=== PATIENT | female | born 1930 | race Caucasian/White ===

== ENCOUNTER 2017-04-23 12:09 | Emergency (ER) | payer MEDICARE, OTHER, MEDICAID ==
[2017-04-23 13:01] VITALS: BP 117/59
--- NOTE | 2017-04-23 13:36 | EDM.PDOC ---
ED HPI GENERAL MEDICAL PROBLEM - General Chief Complaint: General Stated Complaint: COUGH Time Seen by Provider: 04/23/17 13:15 Source of Information: Reports: Patient, Family History Limitations: Denies: Other (Confusion from dementia) - History of Present Illness INITIAL COMMENTS - FREE TEXT/NARRATIVE: 87-year-old female who went into the clinic because of a cough, she also fell and bumped the back of her head yesterday but they watched her closely and she developed no symptoms. She went into the clinic and they sent her over the emergency room. She is very stable, talkative, and other than a moderate cough has no other symptoms. No fevers or chills no nausea or vomiting Severity: Mild Associated Symptoms: Denies: Fever/Chills, Headaches, Malaise, Nausea/Vomiting, Shortness of Breath, Weakness - Related Data Allergies Allergy/AdvReac Type Severity Reaction Status Date / Time amoxicillin trihydrate Allergy Cannot Verified 04/23/17 13:05 [From Augmentin] Remember Dairy Products Allergy Cannot Verified 04/23/17 13:05 Remember nitrofurantoin Allergy Cannot Verified 04/23/17 13:05 [From Macrobid] Remember nitrofurantoin Allergy Cannot Verified 04/23/17 13:05 macrocrystalline Remember [From Macrobid] Penicillins Allergy Disorientat Verified 04/23/17 13:05 ion potassium clavulanate Allergy Cannot Verified 04/23/17 13:05 [From Augmentin] Remember sertraline Allergy Cannot Verified 04/23/17 13:05 Remember Sulfa (Sulfonamide Allergy Cannot Verified 04/23/17 13:05 Antibiotics) Remember Home Meds: Home Meds Cranberry 500 mg PO DAILY 06/01/14 [History] Digoxin [Lanoxin] 0.125 mg PO ASDIRECTED 06/01/14 [History] Digoxin [Lanoxin] 0.25 mg PO ASDIRECTED 06/01/14 [History] Docusate Sodium 100 mg PO DAILY PRN 06/01/14 [History] Multivitamin [Chewable Multi Vitamin] 1 each PO DAILY 06/01/14 [History] Omeprazole 20 mg PO DAILY 06/01/14 [History] Potassium Chloride [Klor-Con 10] 20 meq PO BID 06/01/14 [History] Tolterodine [Detrol] 2 mg PO BID 06/01/14 [History] Warfarin [Coumadin] 3 mg PO ASDIRECTED 06/01/14 [History] Calcium Carbonate [Calcium] 600 mg PO DAILY 09/10/16 [History] Cholecalciferol (Vitamin D3) [Vitamin D3] 2,000 units PO DAILY 09/10/16 [History ] Glycerin/Propylene Glycol [Artificial Tears Drops] 1 drop EYEBOTH Q4H 09/10/16 [ History] HCTZ/Triamterene [Maxzide 25-37.5 MG] 1 tab PO DAILY 09/10/16 [History] Latanoprost 1 drop EYELF DAILY 09/10/16 [History] Metoprolol Tartrate [Lopressor] 0.5 tab PO BID 09/10/16 [History] Warfarin [Coumadin] 2 mg PO ASDIRECTED 09/10/16 [History] atorvaSTATin [Lipitor] 20 mg PO DAILY 09/10/16 [History] prednisoLONE Acetate [Prednisolone Acetate] 1 drop EYELF DAILY 09/10/16 [History ] Acetaminophen [Tylenol] 650 mg PO Q4H PRN #100 tablet 09/11/16 [Rx] Cephalexin [Keflex] 250 mg PO BEDTIME 04/23/17 [History] Gabapentin [Neurontin] 100 mg PO BID 04/23/17 [History] Gabapentin [Neurontin] 300 mg PO BEDTIME 04/23/17 [History] Past Medical History HEENT History: Reports: Cataract, Glaucoma, Macular Degeneration Cardiovascular History: Reports: Heart Failure Gastrointestinal History: Reports: GERD Genitourinary History: Reports: Urinary Incontinence, UTI, 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: Musculoskeletal History: Reports: Fracture, Osteoporosis Neurological History: Reports: Alzheimers Disease, TIA Psychiatric History: Reports: Depression Endocrine/Metabolic History: Reports: Osteoporosis Hematologic History: Reports: Blood Transfusion(s) Oncologic (Cancer) History: Reports: Lymphoma - Infectious Disease History Infectious Disease History: Reports: Chicken Pox, Mumps, Shingles - Past Surgical History HEENT Surgical History: Reports: Cataract Surgery Oncologic Surgical History: Reports: Bone Marrow Transplant Social & Family History - Tobacco Use Smoking Status *Q: Never Smoker - Caffeine Use Caffeine Use: Reports: Coffee - Recreational Drug Use Recreational Drug Use: No ED ROS GENERAL - Review of Systems Review Of Systems: See Below Constitutional: Denies: Fever, Chills, Malaise HEENT: Denies: Vision Change Respiratory: Reports: Cough. Denies: Shortness of Breath, Wheezing Cardiovascular: Denies: Chest Pain GI/Abdominal: Denies: Abdominal Pain, Nausea, Vomiting Skin: Reports: Bruising (On the back of her scalp from a fall yesterday) Neurological: Reports: Confusion (Chronic and stable). Denies: Headache ED EXAM, GENERAL - Physical Exam Exam: See Below Exam Limited By: No Limitations General Appearance: Alert, No Apparent Distress Eye Exam: Bilateral Eye: Normal Inspection Neck: Normal Inspection, Supple, Non-Tender Respiratory/Chest: Rales (A few bibasilar rales, slightly worse on the left). No: Wheezing Cardiovascular: Regular Rate, Rhythm GI/Abdominal: Soft, Non-Tender Extremities: Normal Inspection. No: Pedal Edema Neurological: Alert. No: Oriented (Patient is not oriented to time) Psychiatric: Normal Affect, Normal Mood Skin Exam: Warm, Dry, Other (Small 3 cm ecchymotic bruise on the back of her scalp, no hematoma) Course - Vital Signs Last Recorded V/S: Last Vital Signs Temp 96.5 F 04/23/17 13:03 Pulse 75 04/23/17 13:03 Resp 17 04/23/17 13:03 BP 117/59 L 04/23/17 13:03 Pulse Ox 95 04/23/17 13:03 - Re-Assessments/Exams Free Text/Narrative Re-Assessment/Exam: 04/23/17 13:34 The patient is so stable neurologically and asymptomatic that I do not see the need for a CT scan of the head. We discussed the possibility of her coughing viral, but can treat her with a 5 day course of Zithromax to cover atypicals. She can return if worsening or concerns. Departure - Departure Time of Disposition: 13:47 Disposition: Home, Self-Care 01 Condition: Good Clinical Impression: Bronchitis Closed head injury Qualifiers: Encounter type: initial encounter Qualified Code(s): S09.90XA - Unspecified injury of head, initial encounter - Discharge Information Instructions: Head Injury, Adult, [id number] Referrals: Filiberto Bailey MD [Primary Care Provider] - Forms: ED Department Discharge Care Plan Goals: Take antibiotic as prescribed starting with 2 pills tonight then 1 pill each morning for the next 4 days. Activity as tolerated and return anytime if worsening or concerns.
== END 2017-04-23 13:47 | disposition home or self-care (01) ==
LOC: JP.ED 12:09
DX: S00.03XA Contusion of scalp, initial encounter (principal); J20.9 Acute bronchitis, unspecified; I50.9 Heart failure, unspecified; K21.9 Gastro-esophageal reflux disease without esophagitis; M81.0 Age-related osteoporosis without current pathological fracture; G30.9 Alzheimer's disease, unspecified; F02.80 Dementia in other diseases classified elsewhere, unspecified severity, without behavioral disturbance, psychotic disturbance, mood disturbance, and anxiety; Z87.440 Personal history of urinary (tract) infections; Z88.0 Allergy status to penicillin; Z88.1 Allergy status to other antibiotic agents; Z88.2 Allergy status to sulfonamides; Z88.8 Allergy status to other drugs, medicaments and biological substances; Z91.011 Allergy to milk products; Z79.01 Long term (current) use of anticoagulants; Z79.899 Other long term (current) drug therapy; Z86.73 Personal history of transient ischemic attack (TIA), and cerebral infarction without residual deficits; Z85.72 Personal history of non-Hodgkin lymphomas; Z98.49 Cataract extraction status, unspecified eye; Z94.81 Bone marrow transplant status; W01.10XA Fall on same level from slipping, tripping and stumbling with subsequent striking against unspecified object, initial encounter
CPT/HCPCS: 99284; 99285

== ENCOUNTER 2017-06-11 16:30 | Observation (INO) | payer MEDICARE, OTHER, MEDICAID ==
--- NOTE | 2017-06-11 17:34 | EDM.PDOC ---
ED HPI GENERAL MEDICAL PROBLEM - General Chief Complaint: Gastrointestinal Problem Stated Complaint: MED[facility] Time Seen by Provider: 06/11/17 17:00 Source of Information: Reports: Patient, EMS History Limitations: Reports: No Limitations - History of Present Illness INITIAL COMMENTS - FREE TEXT/NARRATIVE: 87-year-old female from a local assisted living facility has been unable to swallow fluids and feels a lower esophageal obstruction and pressure in her chest since after her noon meal. She had similar symptoms several days ago but they resolved spontaneously. She does not complain of shortness of breath, she has some discomfort radiating to her back but she has chronic back pain as well. No diarrhea, fevers or chills. She was eating chicken when the symptoms started. Onset: Sudden (About 5 hours ago) Location: Reports: Abdomen (upper abdomen) Severity: Moderate Worsens with: Reports: Other (Attempting to drink or eat causes increased symptoms) Associated Symptoms: Denies: Confusion, Chest Pain, Fever/Chills, Malaise, Shortness of Breath Back Pain Score (Numeric/FACES): 6 - Related Data Allergies Allergy/AdvReac Type Severity Reaction Status Date / Time amoxicillin trihydrate Allergy Cannot Verified 06/11/17 16:57 [From Augmentin] Remember Dairy Products Allergy Cannot Verified 06/11/17 16:57 Remember nitrofurantoin Allergy Cannot Verified 06/11/17 16:57 [From Macrobid] Remember nitrofurantoin Allergy Cannot Verified 06/11/17 16:57 macrocrystalline Remember [From Macrobid] Penicillins Allergy Disorientat Verified 06/11/17 16:57 ion potassium clavulanate Allergy Cannot Verified 06/11/17 16:57 [From Augmentin] Remember sertraline Allergy Cannot Verified 06/11/17 16:57 Remember Sulfa (Sulfonamide Allergy Cannot Verified 06/11/17 16:57 Antibiotics) Remember Home Meds: Home Meds Cranberry 500 mg PO BID 06/01/14 [History] Digoxin [Lanoxin] 0.125 mg PO ASDIRECTED 06/01/14 [History] Digoxin [Lanoxin] 0.25 mg PO ASDIRECTED 06/01/14 [History] Docusate Sodium 100 mg PO DAILY PRN 06/01/14 [History] Multivitamin [Chewable Multi Vitamin] 1 each PO DAILY 06/01/14 [History] Omeprazole 20 mg PO DAILY 06/01/14 [History] Potassium Chloride [Klor-Con 10] 20 meq PO BID 06/01/14 [History] Tolterodine [Detrol] 2 mg PO BID 06/01/14 [History] Warfarin [Coumadin] 3 mg PO ASDIRECTED 06/01/14 [History] Calcium Carbonate [Calcium] 600 mg PO DAILY 09/10/16 [History] Cholecalciferol (Vitamin D3) [Vitamin D3] 2,000 units PO DAILY 09/10/16 [History ] Glycerin/Propylene Glycol [Artificial Tears Drops] 1 drop EYEBOTH Q4H 09/10/16 [ History] HCTZ/Triamterene [Maxzide 25-37.5 MG] 1 tab PO DAILY 09/10/16 [History] Latanoprost 1 drop EYELF DAILY 09/10/16 [History] Metoprolol Tartrate [Lopressor] 0.5 tab PO BID 09/10/16 [History] Warfarin [Coumadin] 2 mg PO ASDIRECTED 09/10/16 [History] atorvaSTATin [Lipitor] 20 mg PO DAILY 09/10/16 [History] Acetaminophen [Tylenol] 650 mg PO Q4H PRN #100 tablet 09/11/16 [Rx] Cephalexin [Keflex] 250 mg PO BEDTIME 04/23/17 [History] Gabapentin [Neurontin] 100 mg PO BID 04/23/17 [History] Gabapentin [Neurontin] 300 mg PO BEDTIME 04/23/17 [History] Baclofen [Baclofen] 5 mg PO TID PRN 06/11/17 [History] Benzonatate [Tessalon Perles] 100 mg PO TID PRN 06/11/17 [History] Bisacodyl 10 mg RC DAILY PRN 06/11/17 [History] DULoxetine [Cymbalta] 30 mg PO DAILY 06/11/17 [History] Docusate Sodium [Colace] 100 mg PO DAILY PRN 06/11/17 [History] Loperamide [Imodium] 2 mg PO ASDIRECTED PRN 06/11/17 [History] Mag Hydrox/Al Hydrox/Simeth [Maalox Maximum Strength Susp] 30 ml PO QID PRN [History] Magnesium Hydroxide [Milk of Magnesia] 30 ml PO DAILY PRN 06/11/17 [History] diphenhydrAMINE [Benadryl] 25 mg PO BEDTIME PRN 06/11/17 [History] guaiFENesin/Dextromethorphan [Tussin Dm Liquid] 10 ml PO Q4H PRN 06/11/17 [ History] traMADol HCl [Tramadol HCl] 50 mg PO BID 06/11/17 [History] traMADol [Ultram] 50 mg PO Q8H PRN 06/11/17 [History] Past Medical History HEENT History: Reports: Cataract, Glaucoma, Macular Degeneration Cardiovascular History: Reports: Afib, Heart Failure, High Cholesterol, Hypertension Gastrointestinal History: Reports: GERD Genitourinary History: Reports: Urinary Incontinence, UTI, 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: Musculoskeletal History: Reports: Back Pain, Chronic, Fracture, Osteoporosis Neurological History: Reports: Alzheimers Disease, CVA, TIA Psychiatric History: Reports: Depression Endocrine/Metabolic History: Reports: Osteoporosis Hematologic History: Reports: Blood Transfusion(s), Idiopathic Thrombocytopenia Oncologic (Cancer) History: Reports: Lymphoma - Infectious Disease History Infectious Disease History: Reports: Chicken Pox, Mumps, Shingles - Past Surgical History HEENT Surgical History: Reports: Cataract Surgery Oncologic Surgical History: Reports: Bone Marrow Transplant Social & Family History - Tobacco Use Smoking Status *Q: Never Smoker - Caffeine Use Caffeine Use: Reports: Coffee - Recreational Drug Use Recreational Drug Use: No ED ROS GENERAL - Review of Systems Review Of Systems: See Below Constitutional: Denies: Fever, Chills Respiratory: Denies: Shortness of Breath, Cough Cardiovascular: Denies: Chest Pain GI/Abdominal: Reports: Abdominal Pain (Some epigastric fullness and discomfort) : Reports: No Symptoms Skin: Reports: Bruising (She has scattered bruising especially on the forehead and scalp from recent falls) Neurological: Denies: Headache ED EXAM, GENERAL - Physical Exam Exam: See Below Exam Limited By: No Limitations General Appearance: Alert, No Apparent Distress (Looks uncomfortable but not distressed) Eye Exam: Bilateral Eye: EOMI (No jaundice) Respiratory/Chest: No Respiratory Distress, Lungs Clear Cardiovascular: Irregularly Irregular GI/Abdominal: Tender (Some mild discomfort with palpation across the upper abdomen but no guarding) Extremities: No: Pedal Edema Neurological: Alert, No Motor/Sensory Deficits Skin Exam: Warm, Dry Course - Vital Signs Last Recorded V/S: Last Vital Signs Temp 96.9 F 06/12/17 07:10 Pulse 93 06/12/17 07:10 Resp 16 06/12/17 07:10 BP 90/52 L 06/12/17 07:10 Pulse Ox 96 06/12/17 07:10 - Orders/Labs/Meds Orders: Medication Orders Benzocaine (Anbesol 10% Dental Gel) 0 gm MUCMEM ASDIRECTED PRN PRN Reason: CANKER SORES Hydromorphone HCl (Dilaudid) 0.25 mg IV Q2H PRN PRN Reason: PAIN Last Admin: 06/12/17 01:13 Dose: 0.25 mg Admin: 06/11/17 19:38 Dose: 0.25 mg Dextrose/Lactated Ringer's (Dextrose 5%-Lactated Ringers) 1,000 mls @ 100 mls/ hr IV ASDIRECTED DEJUAN Last Admin: 06/11/17 23:35 Dose: 100 mls/hr Ondansetron HCl (Zofran) 4 mg IVPUSH Q4H PRN PRN Reason: Nausea/Vomiting Labs: Laboratory Tests 06/11/17 06/11/17 06/11/17 Range/Units 17:10 17:10 17:10 WBC 14.4 H (4.5-11.0) K/uL RBC 3.52 (3.30-5.50) M/uL Hgb 12.7 (12.0-15.0) g/dL Hct 37.1 (36.0-48.0) % MCV 105 H (80-98) fL MCH 36 H (27-31) pg MCHC 34 (32-36) % Plt Count 145 L (150-400) K/uL Neut % (Auto) 74 H (36-66) % Lymph % (Auto) 16 L (24-44) % [place] % (Auto) 7 H (2-6) % Eos % (Auto) 2 (2-4) % Baso % (Auto) 1 (0-1) % PT 21.3 H (9.5-12.0) sec INR 1.94 H (0.80-1.20) Sodium 131 L (140-148) mmol/L Potassium 4.2 (3.6-5.2) mmol/L Chloride 95 L (100-108) mmol/L Carbon Dioxide 31 (21-32) mmol/L Anion Gap 9.2 (5.0-14.0) mmol/L BUN 15 (7-18) mg/dL Creatinine 0.6 (0.6-1.0) mg/dL Est Cr Clr Drug Dosing 48.19 mL/min Estimated GFR (MDRD) > 60 (>60) Glucose 108 H (74-106) mg/dL Calcium 9.0 (8.5-10.1) mg/dL Meds: Medications Generic Name Dose Route Start Last Admin Trade Name Susan PRN Reason Stop Dose Admin Benzocaine 0 gm 06/12/17 07:36 Anbesol 10% Dental Gel MUCMEM ASDIRECTED PRN CANKER SORES Hydromorphone HCl 0.25 mg 06/11/17 18:39 06/12/17 01:13 Dilaudid IV 0.25 mg Q2H PRN Administration PAIN Dextrose/Lactated Ringer's 1,000 mls @ 100 mls/hr 06/11/17 23:15 06/11/17 23: 35 Dextrose 5%-Lactated Ringers IV 100 mls/hr ASDIRECTED DEJUAN Administration Ondansetron HCl 4 mg 06/11/17 23:04 Zofran IVPUSH Q4H PRN Nausea/Vomiting Discontinued Medications Generic Name Dose Route Start Last Admin Trade Name Susan PRN Reason Stop Dose Admin Diphenhydramine HCl 25 mg 06/11/17 23:03 06/11/17 23:34 Benadryl IVPUSH 06/11/17 23:04 25 mg ONETIME STA Administration Sodium Chloride 1,000 mls @ 175 mls/hr 06/11/17 18:45 06/11/17 19:01 Normal Saline IV 175 mls/hr ASDIRECTED DEJUAN Administration - Re-Assessments/Exams Free Text/Narrative Re-Assessment/Exam: 06/11/17 17:33 I had the patient try to swallow a couple sips of water, she felt increased pressure after drinking. She also ended up spitting up the water several minutes later. I discussed these findings with Dr. Sol and he requested her to be admitted with an EGD scheduled for tomorrow morning. CBC, BMP and pro time /INR were obtained. INR was 1.94, CBC revealed a white count of 14,400. Electrolytes were reasonably normal. Patient will be reassessed tomorrow morning by Dr. Sol. Departure - Departure Time of Disposition: 17:58 Disposition: Admitted As Inpatient 66 Condition: Fair Clinical Impression: Esophageal obstruction - Discharge Information
[2017-06-11] MEDS ORDERED: Sodium Chloride 0.9% 1,000 ML IV SCH (18:45)
[2017-06-11] MEDS: HYDROmorphone 1 MG/ML Syringe IV PRN (19:38)
[2017-06-11] MEDS ORDERED: diphenhydrAMINE 50 MG/ML SDV IVPUSH STA (23:03)
[2017-06-11] MEDS ORDERED: Ondansetron 4 MG/2 ML SDV IVPUSH PRN (23:04)
[2017-06-11] MEDS ORDERED: Dextrose 5%-Lactated Ringers 1,000 ML IV SCH (23:15)
[2017-06-12] MEDS: HYDROmorphone 1 MG/ML Syringe IV PRN (01:13)
[2017-06-12] MEDS ORDERED: Benzocaine 10% Dental Gel 9 GM Tube MUCMEM PRN (07:36)
--- NOTE | 2017-06-12 08:05 | PCM.HP ---
H&P History of Present Illness - General Date of Service: 06/12/17 Admit Problem/Dx: Admission Diagnosis/Problem Admission Diagnosis/Problem Obstruction of esophagus Source of Information: Patient, EMS Notes Reviewed History Limitations: Reports: Other (patient's history is limited due to poor historian) - History of Present Illness Initial Comments - Free Text/Narative: Alpa reports that she noticed a difficult time swallowing and lower esophageal obstruction yesterday after eating grapes. She states that her dentures don't fit very well and she has a hard time chewing certain foods well. She feels better today and that the sensation of obstruction has passed. She was scheduled for an EGD however states that she does not want this done. She has agreed to try a full liquid diet today and see if symptoms are resolved. She does mention canker sores that are visible in her mouth as well. Onset of Symptoms: Reports: Other (yesterday ) Symptom Onset Date: 06/11/17 Duration of Symptoms: Reports: Improving Location: Reports: Abdomen (upper ) Quality: Reports: Other (improved ) Severity: Mild Improves with: Reports: Rest Worsens with: Reports: Eating (and drinking, however she reports currently resolved ) Associated Symptoms: Reports: No Other Symptoms (Denies difficulty swallowing normally. ) Back Pain Score (Numeric/FACES): 6 - Related Data Allergies/Adverse Reactions: Allergies Allergy/AdvReac Type Severity Reaction Status Date / Time amoxicillin trihydrate Allergy Cannot Verified 06/11/17 16:57 [From Augmentin] Remember Dairy Products Allergy Cannot Verified 06/11/17 16:57 Remember nitrofurantoin Allergy Cannot Verified 06/11/17 16:57 [From Macrobid] Remember nitrofurantoin Allergy Cannot Verified 06/11/17 16:57 macrocrystalline Remember [From Macrobid] Penicillins Allergy Disorientat Verified 06/11/17 16:57 ion potassium clavulanate Allergy Cannot Verified 06/11/17 16:57 [From Augmentin] Remember sertraline Allergy Cannot Verified 06/11/17 16:57 Remember Sulfa (Sulfonamide Allergy Cannot Verified 06/11/17 16:57 Antibiotics) Remember Home Medications: Home Meds Cranberry 500 mg PO BID 06/01/14 [History] Digoxin [Lanoxin] 0.125 mg PO ASDIRECTED 06/01/14 [History] Digoxin [Lanoxin] 0.25 mg PO ASDIRECTED 06/01/14 [History] Docusate Sodium 100 mg PO DAILY PRN 06/01/14 [History] Multivitamin [Chewable Multi Vitamin] 1 each PO DAILY 06/01/14 [History] Omeprazole 20 mg PO DAILY 06/01/14 [History] Potassium Chloride [Klor-Con 10] 20 meq PO BID 06/01/14 [History] Tolterodine [Detrol] 2 mg PO BID 06/01/14 [History] Warfarin [Coumadin] 3 mg PO ASDIRECTED 06/01/14 [History] Calcium Carbonate [Calcium] 600 mg PO DAILY 09/10/16 [History] Cholecalciferol (Vitamin D3) [Vitamin D3] 2,000 units PO DAILY 09/10/16 [History ] Glycerin/Propylene Glycol [Artificial Tears Drops] 1 drop EYEBOTH Q4H 09/10/16 [ History] HCTZ/Triamterene [Maxzide 25-37.5 MG] 1 tab PO DAILY 09/10/16 [History] Latanoprost 1 drop EYELF DAILY 09/10/16 [History] Metoprolol Tartrate [Lopressor] 0.5 tab PO BID 09/10/16 [History] Warfarin [Coumadin] 2 mg PO ASDIRECTED 09/10/16 [History] atorvaSTATin [Lipitor] 20 mg PO DAILY 09/10/16 [History] Acetaminophen [Tylenol] 650 mg PO Q4H PRN #100 tablet 09/11/16 [Rx] Cephalexin [Keflex] 250 mg PO BEDTIME 04/23/17 [History] Gabapentin [Neurontin] 100 mg PO BID 04/23/17 [History] Gabapentin [Neurontin] 300 mg PO BEDTIME 04/23/17 [History] Baclofen [Baclofen] 5 mg PO TID PRN 06/11/17 [History] Benzonatate [Tessalon Perles] 100 mg PO TID PRN 06/11/17 [History] Bisacodyl 10 mg RC DAILY PRN 06/11/17 [History] DULoxetine [Cymbalta] 30 mg PO DAILY 06/11/17 [History] Docusate Sodium [Colace] 100 mg PO DAILY PRN 06/11/17 [History] Loperamide [Imodium] 2 mg PO ASDIRECTED PRN 06/11/17 [History] Mag Hydrox/Al Hydrox/Simeth [Maalox Maximum Strength Susp] 30 ml PO QID PRN [History] Magnesium Hydroxide [Milk of Magnesia] 30 ml PO DAILY PRN 06/11/17 [History] diphenhydrAMINE [Benadryl] 25 mg PO BEDTIME PRN 06/11/17 [History] guaiFENesin/Dextromethorphan [Tussin Dm Liquid] 10 ml PO Q4H PRN 06/11/17 [ History] traMADol HCl [Tramadol HCl] 50 mg PO BID 06/11/17 [History] traMADol [Ultram] 50 mg PO Q8H PRN 06/11/17 [History] Past Medical History HEENT History: Reports: Cataract, Glaucoma, Macular Degeneration Cardiovascular History: Reports: Afib, Heart Failure, High Cholesterol, Hypertension Gastrointestinal History: Reports: GERD Genitourinary History: Reports: Urinary Incontinence, UTI, 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: Musculoskeletal History: Reports: Back Pain, Chronic, Fracture, Osteoporosis Neurological History: Reports: Alzheimers Disease, CVA, TIA Psychiatric History: Reports: Depression Endocrine/Metabolic History: Reports: Osteoporosis Hematologic History: Reports: Blood Transfusion(s), Idiopathic Thrombocytopenia Oncologic (Cancer) History: Reports: Lymphoma - Infectious Disease History Infectious Disease History: Reports: Chicken Pox, Mumps, Shingles - Past Surgical History HEENT Surgical History: Reports: Cataract Surgery Oncologic Surgical History: Reports: Bone Marrow Transplant Social & Family History - Tobacco Use Smoking Status *Q: Never Smoker Second Hand Smoke Exposure: No - Caffeine Use Caffeine Use: Reports: Coffee - Recreational Drug Use Recreational Drug Use: No H&P Review of Systems - Review of Systems: Review Of Systems: See Below General: Reports: Weakness HEENT: Reports: Headaches (she states while off her coumadin she experiences this), Other (sore mouth) Pulmonary: Reports: No Symptoms Cardiovascular: Reports: No Symptoms Gastrointestinal: Reports: No Symptoms Genitourinary: Reports: No Symptoms Musculoskeletal: Reports: No Symptoms Skin: Reports: Bruising (has bruising on the forehead related to a recent fall, however was unsure when fall occurred) Neurological: Reports: Confusion, Dizziness (states that she feels dizzy when walking at times) Hematologic/Lymphatic: Reports: Easy Bleeding Immunologic: Reports: No Symptoms Exam - Exam Exam: See Below - Vital Signs Vital Signs: Last Vital Signs Temp 36.1 C 06/12/17 07:10 Pulse 93 06/12/17 07:10 Resp 16 06/12/17 07:10 BP 90/52 L 06/12/17 07:10 Pulse Ox 96 06/12/17 07:10 Weight: 46.72 kg - Exam Quality Assessment: DVT Prophylaxis General: Alert, Oriented HEENT: PERRLA, Hearing Intact, Pupils Equal, Pupils Reactive, Other (canker sores in mouth ) Neck: Supple, Trachea Midline Lungs: Clear to Auscultation, Normal Respiratory Effort Cardiovascular: Regular Rate, Regular Rhythm GI/Abdominal Exam: Soft, Non-Tender, No Organomegaly, No Distention (Female) Exam: Deferred Rectal (Female) Exam: Deferred Extremities: Normal Inspection, Non-Tender, No Pedal Edema Peripheral Pulses: 1+: Radial (L), Radial (R) Skin: Warm, Dry, Intact Neurological: Cranial Nerves Intact Neuro Extensive - Mental Status: Alert, Normal Mood/Affect Neuro Extensive - Motor, Sensory, Reflexes: CN II-XII Intact Psychiatric: Alert, Normal Affect, Normal Mood - Patient Data Result Diagrams: 06/11/17 17:10 06/11/17 17:10 *Q Meaningful Use (ADM) - VTE *Q VTE Criteria *Q: VTE Mechanical Contraindications *Q: At Risk for Falls (reports dizziness when she walks) - VTE Risk Assess *Q Each Risk Factor Represents 1 Point: None Total Score 1 Point Risk Factors: 0 Each Risk Factor Represents 2 Points: Previous Malignancy Total Score 2 Point Risk Factors: 2 Each Risk Factor Represents 3 Points: Age 75 Years or Greater Total Score 3 Point Risk Factors: 3 Each Risk Factor Represents 5 Points: None Total Score 5 Point Risk Factors: 0 Venous Thromboembolism Risk Factor Score *Q: 5 - Stroke *Q Stroke Criteria *Q: - AMI *Q AMI Criteria *Q: - Problem List (1) Esophageal obstruction SNOMED Code(s): 446962529 ICD Code: K22.2 - ESOPHAGEAL OBSTRUCTION Status: Acute Current Visit: Yes (2) Esophageal obstruction due to food impaction SNOMED Code(s): 908389458 ICD Code: K22.2 - ESOPHAGEAL OBSTRUCTION; T18.128A - FOOD IN ESOPHAGUS CAUSING OTHER INJURY, INITIAL ENCOUNTER Status: Acute Current Visit: Yes Problem List Initiated/Reviewed/Updated: Yes Orders Last 24hrs: Active Orders 24 hr Category Date Time Status Patient Status [ADT] Routine ADT 06/11/17 17:30 Active Communication Order [RC] ASDIRECTED Care 06/12/17 07:25 Active Oxygen Therapy [RC] PRN Care 06/11/17 18:19 Active VTE/DVT Education [RC] Per Unit Routine Care 06/11/17 18:19 Active Vital Signs [RC] Q4H Care 06/11/17 18:19 Active Full Liquid Diet [DIET] Diet 06/12/17 Breakfast Ordered Benzocaine [Anbesol 10% Dental Gel] Med 06/12/17 07:36 Active 0 gm MUCMEM ASDIRECTED PRN Dextrose 5%-Lactated Ringers 1,000 ml Med 06/11/17 23:15 Active IV ASDIRECTED HYDROmorphone [Dilaudid] Med 06/11/17 18:39 Active 0.25 mg IV Q2H PRN Ondansetron [Zofran] Med 06/11/17 23:04 Active 4 mg IVPUSH Q4H PRN Convert IV to Saline Lock [OM.PC] Routine Oth 06/12/17 07:24 Ordered SCD [Sequential Compression Device] [OM.PC] Routine Oth 06/11/17 23:02 Ordered Resuscitation Status Routine Resus Stat 06/11/17 18:19 Ordered Medication Orders Benzocaine (Anbesol 10% Dental Gel) 0 gm MUCMEM ASDIRECTED PRN PRN Reason: CANKER SORES Hydromorphone HCl (Dilaudid) 0.25 mg IV Q2H PRN PRN Reason: PAIN Last Admin: 06/12/17 01:13 Dose: 0.25 mg Admin: 06/11/17 19:38 Dose: 0.25 mg Dextrose/Lactated Ringer's (Dextrose 5%-Lactated Ringers) 1,000 mls @ 100 mls/ hr IV ASDIRECTED DEJUAN Last Admin: 06/11/17 23:35 Dose: 100 mls/hr Ondansetron HCl (Zofran) 4 mg IVPUSH Q4H PRN PRN Reason: Nausea/Vomiting Assessment/Plan Comment:: Obstruction of esophagus. PLAN 1. Full liquid diet ordered for today. 2. Benzocaine gel prn for canker sores. 3. Convert IV to saline lock if PO intake is adequate. If tolerates diet today, plan discharge in am. DENA Thorpe Student
[2017-06-12] MEDS ORDERED: Acetaminophen 325 MG Tab PO PRN (11:20)
[2017-06-12] MEDS ORDERED: Benzonatate 100 MG Cap PO PRN (11:20)
[2017-06-12] MEDS ORDERED: Baclofen 10 MG Tab PO PRN (11:20)
[2017-06-12] MEDS ORDERED: Loperamide 2 MG Cap PO PRN (11:20)
[2017-06-12] MEDS ORDERED: Magnesium Hydroxide 400 MG/5 ML Susp 30 ML Cup PO PRN (11:20)
[2017-06-12] MEDS ORDERED: guaiFENesin/Dextromethorphan 100-10 MG/5 ML Soln 10 ML Cup PO PRN (11:20)
[2017-06-12] MEDS ORDERED: Aluminum Hydroxide/Magnesium Hydroxide/Simethicone Susp 30 ML Cup PO PRN (11:20)
[2017-06-12] MEDS ORDERED: diphenhydrAMINE 25 MG Cap PO PRN (11:20)
[2017-06-12] MEDS ORDERED: Docusate Sodium 100 MG Cap PO PRN ×2 (11:20)
[2017-06-12] MEDS ORDERED: traMADol 50 MG Tab PO PRN (11:20)
[2017-06-12 11:22] VITALS: BP 101/56
[2017-06-12] MEDS ORDERED: Hypromellose 0.4% Ophth Soln 15 ML Bottle EYEBOTH SCH (12:00)
[2017-06-12] MEDS ORDERED: Digoxin 125 MCG Tab PO SCH (13:00)
[2017-06-12] MEDS ORDERED: Gabapentin 100 MG Cap PO SCH (14:00)
[2017-06-12] MEDS ORDERED: Potassium Chloride 20 MEQ Tab.ER PO SCH (17:00)
[2017-06-12] MEDS ORDERED: traMADol 50 MG Tab PO SCH (21:00)
[2017-06-12] MEDS ORDERED: Gabapentin 300 MG Cap PO SCH (21:00)
[2017-06-12] MEDS ORDERED: Metoprolol Tartrate 25 MG Tab PO SCH (21:00)
[2017-06-12] MEDS ORDERED: Cephalexin 250 MG Cap PO SCH (21:00)
[2017-06-12] MEDS ORDERED: Tolterodine 2 MG Tab PO SCH (21:00)
[2017-06-13] MEDS ORDERED: Pantoprazole 40 MG Tab.CR PO SCH (07:30)
[2017-06-13] MEDS ORDERED: DULoxetine 30 MG Cap PO SCH (09:00)
[2017-06-13] MEDS ORDERED: atorvaSTATin 20 MG Tab PO SCH (09:00)
[2017-06-13] MEDS ORDERED: Cholecalciferol (Vitamin D3) 1,000 Unit Tab PO SCH (09:00)
[2017-06-13] MEDS ORDERED: Multivitamins with Iron Tab.Chew PO SCH (09:00)
[2017-06-13] MEDS ORDERED: Hydrochlorothiazide/Triamterene 25-37.5 MG Cap PO SCH (09:00)
[2017-06-13] MEDS ORDERED: Calcium Carbonate/Vitamin D3 1500 MG-400 Units Tab PO SCH (09:00)
[2017-06-13] MEDS ORDERED: Digoxin 125 MCG Tab PO SCH (13:00)
[2017-06-13] MEDS ORDERED: Latanoprost 0.005% Ophth Soln 2.5 ML Bottle EYELF SCH (21:00)
--- NOTE | 2017-06-17 08:26 | DISCH ---
ADMISSION DIAGNOSES: 1. Acute esophageal obstruction. States that she was eating a grape and it got stuck. 2. Macular degeneration. 3. Atrial fibrillation. 4. Heart failure. 5. Hypercholesterolemia. 6. Hypertension. 7. History of gastroesophageal reflux disease. 8. Recurrent urinary tract infections. 9. Chronic back pain. 10.Osteoporosis. 11.Alzheimer disease. 12.Depression. 13.Idiopathic thrombocytopenia. 14.History of lymphoma. DISCHARGE DIAGNOSIS: Resolution of esophageal obstruction. HISTORY: Alpa Galvez was admitted through the emergency room, stating that she was eating some grapes, her dentures do not fit very well, so she is not able to chew, and she felt like a grape got stuck. She was admitted overnight to have an EGD done on 06/12/2017. That morning, she declined having the EGD stating she felt better. She was started on a full liquid diet. Her symptoms resolved, and she was ready to be discharged back to the senior care after her noon meal. REVIEW OF SYSTEMS: HEENT: Negative. No fever, chills, night sweats, or fatigue. LUNGS: No cough. CHEST: No chest pain, shortness of breath, or fast or irregular heart beat. GI: No dysphagia, nausea, vomiting, diarrhea or constipation. : Negative. MUSCULOSKELETAL: Chronic back pain. SKIN: She remains to have the bruising on her forehead through a recent fall. NEUROLOGIC: Some confusion. HEMATOLOGIC AND LYMPHATIC: Easy bruising, which is normal for her. Remainder of review of systems negative for any pertinent positives and negatives. OBJECTIVE: GENERAL: Alpa Galvez is a pleasant 87-year-old female. VITAL SIGNS: Height is 5 feet 1.81 inches, weight is 102 pounds. TPR 97.3, 90, 16. Blood pressure 101/56. HEENT: Negative. NECK: Supple. HEART: Regular rate and rhythm. LUNGS: Clear. ABDOMEN: Soft and nontender. : Deferred. BREASTS: Deferred. EXTREMITIES: Without peripheral edema. Full range of motion. NEUROLOGIC: Cranial nerves 2 to 12 intact. PSYCHIATRIC: Mood and affect appropriate. Mild confusion. SKIN: Healing bruising on her forehead as noted above. DISPOSITION: Discharged to home. CONDITION: Stable and improving. FOLLOWUP: With primary care provider p.r.n. or with Surgery Department if she continues to have an increase in swallowing. DIET: Full liquid diet for 2 days, then advance slowly. ACTIVITY: As tolerated. DISCHARGE INSTRUCTIONS: Notify provider if any fever, increased pain, nausea, or vomiting. Recommend following up with her dentist to get her teeth better adjusted.
== END 2017-06-12 13:40 ==
LOC: JP.ED 16:30 → JP.MS 17:30
PROVIDERS: ADMIT Surgery; ATTEND Surgery
DX: K22.2 Esophageal obstruction (principal); T18.128A Food in esophagus causing other injury, initial encounter; H35.30 Unspecified macular degeneration; I48.91 Unspecified atrial fibrillation; E78.00 Pure hypercholesterolemia, unspecified; I10 Essential (primary) hypertension; K21.9 Gastro-esophageal reflux disease without esophagitis; N39.0 Urinary tract infection, site not specified; F32.9 Major depressive disorder, single episode, unspecified; G30.9 Alzheimer's disease, unspecified; F02.80 Dementia in other diseases classified elsewhere, unspecified severity, without behavioral disturbance, psychotic disturbance, mood disturbance, and anxiety; Z88.1 Allergy status to other antibiotic agents; Z88.0 Allergy status to penicillin; Z88.2 Allergy status to sulfonamides; Z88.8 Allergy status to other drugs, medicaments and biological substances; Z91.011 Allergy to milk products; Z79.01 Long term (current) use of anticoagulants; Z79.899 Other long term (current) drug therapy; Z98.890 Other specified postprocedural states; Z94.81 Bone marrow transplant status
CPT/HCPCS: 36415; 80048; 85025; 85610; 96361; 96372; 96375; 96376; 99285; A9270; G0378; J1170; J1200; J7040; J7042; 96374

== ENCOUNTER 2019-03-04 16:37 | Emergency (ER) | payer MEDICARE, OTHER, MEDICAID ==
[2019-03-04 16:42] VITALS: BP 156/68
--- NOTE | 2019-03-04 17:06 | EDM.PDOC ---
ED HPI GENERAL MEDICAL PROBLEM - General Chief Complaint: General Stated Complaint: MED[facility] Time Seen by Provider: 03/04/19 16:40 Source of Information: Reports: Patient, EMS History Limitations: Reports: No Limitations - History of Present Illness INITIAL COMMENTS - FREE TEXT/NARRATIVE: 89-year-old female fell out of bed at her local assisted living. The attendants felt she may have hit her head, they felt that they saw some erythema on the left side of her face so they wanted her examine because of her Coumadin therapy. The patient herself does not have any pain, known injury, and has no complaints. She does not know her think she hit her head. She has no visual complaints or nausea or vomiting. Onset: Sudden Duration: Hour(s): (ithin the last 3 hours) Associated Symptoms: Reports: No Other Symptoms - Related Data Allergies Allergy/AdvReac Type Severity Reaction Status Date / Time amoxicillin trihydrate Allergy Cannot Verified 06/11/17 16:57 [From Augmentin] Remember Dairy Products Allergy Cannot Verified 06/11/17 16:57 Remember nitrofurantoin Allergy Cannot Verified 06/11/17 16:57 [From Macrobid] Remember nitrofurantoin Allergy Cannot Verified 06/11/17 16:57 macrocrystalline Remember [From Macrobid] potassium clavulanate Allergy Cannot Verified 06/11/17 16:57 [From Augmentin] Remember sertraline Allergy Cannot Verified 06/11/17 16:57 Remember Sulfa (Sulfonamide Allergy Cannot Verified 06/11/17 16:57 Antibiotics) Remember Penicillins AdvReac Disorientat Verified 12/08/18 14:20 ion Home Meds: Home Meds Digoxin [Lanoxin] 0.125 mg PO ASDIRECTED 06/01/14 [History] Digoxin [Lanoxin] 0.25 mg PO ASDIRECTED 06/01/14 [History] Potassium Chloride [Klor-Con 10] 20 meq PO BID 06/01/14 [History] Warfarin [Coumadin] 2.5 mg PO ASDIRECTED 06/01/14 [History] Glycerin/Propylene Glycol [Artificial Tears Drops] 1 drop EYEBOTH Q4H 09/10/16 [ History] HCTZ/Triamterene [Maxzide 25-37.5 MG] 1 tab PO DAILY 09/10/16 [History] Latanoprost 1 drop EYELF DAILY 09/10/16 [History] Metoprolol Tartrate [Lopressor] 12.5 mg PO BID 09/10/16 [History] Warfarin [Coumadin] 2 mg PO ASDIRECTED 09/10/16 [History] Acetaminophen [Tylenol] 650 mg PO Q4H PRN #100 tablet 09/11/16 [Rx] Gabapentin [Neurontin] 200 mg PO TID 04/23/17 [History] cephALEXin [Keflex] 250 mg PO BEDTIME 04/23/17 [History] Benzonatate [Tessalon Perles] 100 mg PO TID PRN 06/11/17 [History] Bisacodyl 10 mg RC DAILY PRN 06/11/17 [History] DULoxetine [Cymbalta] 40 mg PO DAILY 06/11/17 [History] Docusate Sodium [Colace] 100 mg PO DAILY PRN 06/11/17 [History] Loperamide [Imodium] 2 mg PO ASDIRECTED PRN 06/11/17 [History] Mag Hydrox/Al Hydrox/Simeth [Maalox Maximum Strength Susp] 30 ml PO QID PRN [History] Magnesium Hydroxide [Milk of Magnesia] 30 ml PO DAILY PRN 06/11/17 [History] diphenhydrAMINE [Benadryl] 25 mg PO BEDTIME PRN 06/11/17 [History] guaiFENesin/Dextromethorphan [Tussin Dm Liquid] 10 ml PO Q4H PRN 06/11/17 [ History] traMADol HCl [Tramadol HCl] 50 mg PO BEDTIME 06/11/17 [History] traMADol [Ultram] 50 mg PO Q6H PRN 06/11/17 [History] Acetaminophen [Tylenol] 1,000 mg PO TID 03/04/19 [History] Mirabegron [Myrbetriq] 25 mg PO DAILY 03/04/19 [History] QUEtiapine Fumarate [Quetiapine Fumarate] 1 tab PO DAILY 03/04/19 [History] Sennosides [Senna] 2 tab PO DAILY 03/04/19 [History] Past Medical History HEENT History: Reports: Cataract, Glaucoma, Macular Degeneration Cardiovascular History: Reports: Afib, Heart Failure, High Cholesterol, Hypertension Gastrointestinal History: Reports: GERD Genitourinary History: Reports: Urinary Incontinence, UTI, Recurrent 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: Musculoskeletal History: Reports: Back Pain, Chronic, Fracture, Osteoporosis Neurological History: Reports: Alzheimers Disease, CVA, TIA Psychiatric History: Reports: Depression Endocrine/Metabolic History: Reports: Osteoporosis Hematologic History: Reports: Blood Transfusion(s), Idiopathic Thrombocytopenia Oncologic (Cancer) History: Reports: Lymphoma - Infectious Disease History Infectious Disease History: Reports: Chicken Pox, Mumps, Shingles - Past Surgical History HEENT Surgical History: Reports: Cataract Surgery Oncologic Surgical History: Reports: Bone Marrow Transplant Social & Family History - Tobacco Use Smoking Status *Q: Never Smoker - Caffeine Use Caffeine Use: Reports: Coffee - Recreational Drug Use Recreational Drug Use: No ED ROS GENERAL - Review of Systems Review Of Systems: See Below Constitutional: Denies: Fever, Chills HEENT: Reports: Other (She is missing some of her teeth, not related to the current injury) Respiratory: Denies: Shortness of Breath, Cough Cardiovascular: Denies: Chest Pain GI/Abdominal: Denies: Abdominal Pain, Nausea, Vomiting Skin: Reports: Other (There is a bruise on the anterior aspect of the right ankle which appears recent) Neurological: Reports: No Symptoms Psychiatric: Reports: No Symptoms ED EXAM, GENERAL - Physical Exam Exam: See Below Exam Limited By: No Limitations General Appearance: Alert, No Apparent Distress Eye Exam: Bilateral Eye: EOMI Head: Atraumatic, Other (I examined her face and scalp and I find no evidence of injury, no swelling no lesion no bruising or tender areas) Neck: Supple, Non-Tender Respiratory/Chest: No Respiratory Distress, Lungs Clear GI/Abdominal: Non-Tender Extremities: Other (No pain to the extremities. A small bruise on the anterior aspect of the right ankle may be from her current trauma but there is no bony tenderness) Course - Vital Signs Last Recorded V/S: Last Vital Signs Temp 97.5 F 03/04/19 16:42 Pulse 81 03/04/19 16:42 Resp 13 03/04/19 16:42 BP 156/68 H 03/04/19 16:42 Pulse Ox 95 03/04/19 16:42 - Re-Assessments/Exams Free Text/Narrative Re-Assessment/Exam: 03/04/19 17:05 There is no good reason to put this patient through a CT scan at this time. No treatment needed as she is asymptomatic, she was sent back to [facility]. Departure - Departure Time of Disposition: 17:38 Disposition: DC/Tfer to [facility] 64 Clinical Impression: Fall from bed Qualifiers: Encounter type: initial encounter Qualified Code(s): W06.XXXA - Fall from bed, initial encounter Contusion, ankle Qualifiers: Encounter type: initial encounter Laterality: right Qualified Code(s): S90.01XA - Contusion of right ankle, initial encounter - Discharge Information Instructions: Contusion, [id number] Referrals: PCP,None [Primary Care Provider] - Forms: ED Department Discharge Care Plan Goals: No change in medications, ice to any sore areas that develop over the next few days may be beneficial. Return for recheck if concerns.
== END 2019-03-04 20:00 ==
LOC: JP.ED 16:37
DX: S90.01XA Contusion of right ankle, initial encounter (principal); I11.0 Hypertensive heart disease with heart failure; I50.9 Heart failure, unspecified; E78.00 Pure hypercholesterolemia, unspecified; I48.91 Unspecified atrial fibrillation; K21.9 Gastro-esophageal reflux disease without esophagitis; F32.9 Major depressive disorder, single episode, unspecified; Z88.1 Allergy status to other antibiotic agents; W06.XXXA Fall from bed, initial encounter; Z88.8 Allergy status to other drugs, medicaments and biological substances; Z79.01 Long term (current) use of anticoagulants; Z79.899 Other long term (current) drug therapy
CPT/HCPCS: 99284